=== PATIENT | female | born 1995 | race Two or more races ===

== ENCOUNTER 2024-02-21 01:58 | Emergency (ER) | payer OTHER ==
[~2024-02-21] VITALS: Ht 160 cm; Wt 46.3 kg
[2024-02-21] MEDS ORDERED: CEFTRIAXONE SODIUM 1,000 MG VIAL IV STA (03:19)
[2024-02-21] MEDS ORDERED: KETOROLAC TROMETHAMINE 30 MG VIAL IV STA (03:20)
[2024-02-21] MEDS ORDERED: CEFTRIAXONE SODIUM 1,000 MG VIAL ONE (03:24)
[2024-02-21 04:00] LABS: URINE APPEARANCE Clear; URINE BILIRRUBIN Negative (NEGATIVE); URINE BLOOD Moderate; URINE COLOR Yellow; URINE GLUCOSE Negative (NEGATIVE); URINE KETONE Negative (NEGATIVE); URINE LEUKOCYTE Moderate; URINE NITRATE Negative; URINE PROTEIN Trace (NEGATIVE); URINE UROBILINOGEN 0.2 E.U./dl
[2024-02-21 04:03] LABS: URINE BACTERIA 187.1 uL (0.0-1933); URINE EPITHELIAL CELLS 5.5 uL (0.0-38.8); URINE RBC 17.9 uL (0.0-20.8); URINE WBC 277.3 uL (0.0-23.2)
[2024-02-21 04:07] LABS: HEMATOCRIT 36.7 % (36.0-45.00); HEMOGLOBIN 12.5 g/dL (12.0-15.00); MEAN CELL VOLUME 86.9 fL (80.00-100.00); MEAN CORPUSCULAR HEMOGLOBIN 29.7 pg (27.00-32.0); MEAN CORPUSCULAR HGB CONC 34.1 g/dl (32.0-36.0); PLATELET COUNT 283 K/uL (150-450); RED BLOOD COUNT 4.22 M/uL (4.00-6.00); RED CELL DISTRIBUTION WIDTH 13.5 % (11.5-14.5)
[2024-02-21] MEDS ORDERED: PYRIDIUM DS200 MG PO (04:36)
[2024-02-21] MEDS ORDERED: CEPHALEXIN500 MG PO (04:36)
== END 2024-02-21 04:42 ==
LOC: ER 02:00
PROVIDERS: General Practice
DX: N39.0 Urinary tract infection, site not specified (principal); R30.0 Dysuria; Z91.018 Allergy to other foods